=== PATIENT | male | born 1935 | race Caucasian/White ===

== ENCOUNTER 2022-05-02 16:07 | Emergency (ER) | payer MEDICARE ==
[~2022-05-02] VITALS: Ht 175.3 cm; Wt 81.7 kg
[2022-05-02] MEDS ORDERED: CEPHALEXIN500 M1 PO (18:59)
--- NOTE | 2022-05-03 20:15 | EKG ---
[facility] [address] [facility] [place] [address] Signed Normal sinus rhythm Normal ECG No previous ECGs available Confirmed by Dari Benjamin MD () on 05/03/2022 8:15:16 PM Electronically Signed By: DARI BENJAMIN MD 05/03/22 2015 PATIENT NAME: SACHIN PONCE Electrocardiogram DATE OF : 37 PHYSICIAN: DARI BENJAMIN MD REPORT #: [id number] REPORT IS CONFIDENTIAL AND NOT TO BE RELEASED WITHOUT AUTHORIZATION
== END 2022-05-02 20:28 | disposition home or self-care (01) ==
LOC: ED 16:07
DX: U07.1 COVID-19 (principal); N39.0 Urinary tract infection, site not specified
CPT/HCPCS: 36415; 70450; 80053; 81001; 84484; 85025; 85060; 87088; 87502; 93005; 93010; 96365; 99285-25; C9803; J0696; J7030; U0003